=== PATIENT | male | born 1970 | race Native Hawaiian/Other Pacific Islander ===

== ENCOUNTER 2017-06-09 14:37 | Outpatient (CLI) | payer BC ==
[~2017-06-09 14:37] MED LIST: GLIM4TAB PO; JANUVIA100 MG PO; LISI20TA11 PO; METF500T PO; PEPCID20 MG PO
== END 2017-06-09 14:40 | disposition short-term general hospital (02) ==
LOC: AMB 14:37
DX: M54.89 Other dorsalgia (principal); W18.39XA Other fall on same level, initial encounter; Y92.481 Parking lot as the place of occurrence of the external cause
CPT/HCPCS: A0425; A0427

== ENCOUNTER 2017-06-09 14:50 | Emergency (ER) | payer BC ==
[~2017-06-09] VITALS: Ht 185.4 cm; Wt 142.9 kg
[2017-06-09 14:40] VITALS: TEMP 98.2
[2017-06-09 15:30] LABS: PLATELET COUNT 250 K/uL (142-355)
[2017-06-09 15:45] LABS: SODIUM 129 mmol/L (136-145)
[2017-06-09 18:41] VITALS: BP 148/88
== END 2017-06-09 18:42 | disposition home or self-care (01) ==
LOC: ED 14:50
PROVIDERS: Family Medicine
DX: M54.32 Sciatica, left side (principal); M54.31 Sciatica, right side; M47.896 Other spondylosis, lumbar region; M25.551 Pain in right hip; W18.39XA Other fall on same level, initial encounter; Y92.481 Parking lot as the place of occurrence of the external cause
CPT/HCPCS: 36415; 80053; 80307; 81000; 82550; 85027; 96374; 99284; G0479; J1885

== ENCOUNTER 2017-07-20 11:17 | Outpatient (CLI) | payer BC | END 2017-07-20 19:16 | disposition home or self-care (01) | LOC: RAD 11:17 | DX: Z01.818 Encounter for other preprocedural examination (principal) | CPT/HCPCS: 93005 ==

== ENCOUNTER 2017-10-23 11:33 | Emergency (ER) | payer BC ==
[~2017-10-23] VITALS: Ht 182.9 cm; Wt 158.8 kg
[2017-10-23 14:06] LABS: PLATELET COUNT 284 K/uL (142-355)
[2017-10-23 14:18] LABS: POTASSIUM 4.7 mmol/L (3.6-5.2); SODIUM 133 mmol/L (136-145)
[2017-10-23 14:39] LABS: PARTIAL THROMBOPLASTIN TIME 28.5 SECONDS (24.5-33.6)
[2017-10-23 15:00] VITALS: TEMP 98.4
[2017-10-23 16:10] VITALS: BP 151/83
== END 2017-10-23 17:53 | disposition short-term general hospital (02) ==
LOC: ED 11:33
PROVIDERS: Emergency Medicine
DX: R10.31 Right lower quadrant pain (principal); K92.2 Gastrointestinal hemorrhage, unspecified; Z93.3 Colostomy status
CPT/HCPCS: 36415; 80053; 81000; 82150; 82550; 83690; 84484; 85027; 85610; 85730; 96361; 96374; 96375; 96376; 99284; J1170; J2175; J2405

== ENCOUNTER 2018-07-31 15:36 | Observation (INO) | payer BC ==
[~2018-07-31] VITALS: Ht 182.9 cm; Wt 1523.9 kg
[2018-07-31 16:02] VITALS: BP 239/81; TEMP 97.8
[2018-07-31 16:44] LABS: PLATELET COUNT 290 K/uL (142-355)
[2018-07-31 19:08] VITALS: BP 127/63
[2018-08-01 00:37] VITALS: BP 136/67; TEMP 98.1; Ht 182.9 cm; Wt 1523.9 kg
[2018-08-01] MEDS ORDERED: GRALISE600 MG PO (01:34)
[2018-08-01] MEDS ORDERED: METO50TA27 PO (01:36)
[2018-08-01] MEDS ORDERED: FLUOXETINE40 MG PO (01:37)
[2018-08-01] MEDS ORDERED: HYDROCHLOROT12.5 M1 PO (01:43)
[2018-08-01 04:02] VITALS: BP 125/44; TEMP 98.1
[2018-08-01] MEDS ORDERED: LANTUS100 UNIT/M SC ×2 (04:16→04:18)
[2018-08-01] MEDS ORDERED: LISI20TA11 PO (04:27)
[2018-08-01 05:24] LABS: PLATELET COUNT 248 K/uL (142-355)
[2018-08-01 05:35] LABS: POTASSIUM 3.9 mmol/L (3.6-5.2)
[2018-08-01 08:08] VITALS: BP 91/64; TEMP 98.4
[2018-08-01] MEDS ORDERED: CIPRO500 MG PO (12:12)
[2018-08-01] MEDS ORDERED: METR250T19 PO (12:13)
[2018-08-01] MEDS ORDERED: ONDA4TAB3 PO (13:47)
== END 2018-08-01 13:38 | disposition home or self-care (01) ==
LOC: ED 15:36 → MED/SURG 18:45
PROVIDERS: ADMIT Family Medicine
DX: E86.0 Dehydration (principal); D72.828 Other elevated white blood cell count; R10.30 Lower abdominal pain, unspecified; R11.2 Nausea with vomiting, unspecified; E66.01 Morbid (severe) obesity due to excess calories; I10 Essential (primary) hypertension; E10.9 Type 1 diabetes mellitus without complications; Z68.42 Body mass index [BMI] 45.0-49.9, adult
CPT/HCPCS: 36415; 80048; 80053; 81000; 82150; 82948; 83605; 83690; 85027; 87040; 96365; 96366; 96367; 96372; 96374; 96375; 99220; 99284; G0378; J0744; J1650; J1815; J2270; J2405; J3490

== ENCOUNTER 2018-08-03 09:37 | Day surgery (SDC) | payer BC ==
[~2018-08-03 09:37] MED LIST changes: +CIPRO500 MG PO; +FLUOXETINE40 MG PO; +GRALISE600 MG PO; +HYDROCHLOROT12.5 M1 PO; +LANTUS100 UNIT/M SC; +METO50TA27 PO; +METR250T19 PO; +ONDA4TAB3 PO
== END 2018-08-03 13:10 | disposition home or self-care (01) ==
LOC: OR 09:37
PROC: 0D7 Gastrointestinal System, Dilation (ICD-10-PCS; principal; 2018-08-03)
PROC: 3C1ZX8Z Irrigation of Indwelling Device using Irrigating Substance, External Approach (ICD-10-PCS; 2018-08-03)
PROC: 0WQFXZ2 Repair Abdominal Wall, Stoma, External Approach (ICD-10-PCS; 2018-08-03)
DX: K94.03 Colostomy malfunction (principal); K56.41 Fecal impaction
CPT/HCPCS: J2704; J3490

== ENCOUNTER 2018-08-06 13:48 | Inpatient (IN) | payer BC ==
[~2018-08-06] VITALS: Ht 182.9 cm; Wt 160.8 kg
[2018-08-06 16:14] LABS: PLATELET COUNT 286 K/uL (142-355)
[2018-08-06 16:33] LABS: PARTIAL THROMBOPLASTIN TIME 27.4 SECONDS (24.5-33.6)
[2018-08-06 17:27] VITALS: BP 154/83; TEMP 98.3; Ht 182.9 cm; Wt 160.8 kg
[2018-08-06 20:00] VITALS: BP 141/87; TEMP 97.8
[2018-08-06 23:53] VITALS: BP 137/68; TEMP 97.8
[2018-08-07 04:27] VITALS: BP 124/63; TEMP 97.5
[2018-08-07 08:06] VITALS: BP 139/69; TEMP 98
[2018-08-07 12:07] VITALS: BP 179/90; TEMP 98.2
[2018-08-07 16:14] VITALS: BP 129/68; TEMP 98.1
[2018-08-07 19:56] VITALS: BP 143/69; TEMP 98.9
[2018-08-08] VITALS: BP 119/57; TEMP 98.5
[2018-08-08 04:02] VITALS: BP 112/69; TEMP 97.9
[2018-08-08] MEDS ORDERED: SENNA8.6 MG PO (07:17)
[2018-08-08 08:04] VITALS: BP 154/72; TEMP 97.6
== END 2018-08-08 14:30 | disposition home or self-care (01) | DRG 394 ==
LOC: MED/SURG 13:48
DX: K94.03 Colostomy malfunction (principal); E23.2 Diabetes insipidus; L03.311 Cellulitis of abdominal wall; Y83.3 Surgical operation with formation of external stoma as the cause of abnormal reaction of the patient, or of later complication, without mention of misadventure at the time of the procedure; Y73.8 Miscellaneous gastroenterology and urology devices associated with adverse incidents, not elsewhere classified; Y92.89 Other specified places as the place of occurrence of the external cause; K52.89 Other specified noninfective gastroenteritis and colitis; I10 Essential (primary) hypertension; M54.30 Sciatica, unspecified side; K59.09 Other constipation
CPT/HCPCS: 80053; 85027; 85610; 85730; 93005; J0744; J1815; J3490; Q9963

== ENCOUNTER 2021-12-03 14:48 | Emergency (ER) | payer OTHER ==
[~2021-12-03] VITALS: Ht 182.9 cm; Wt 158.8 kg
[2021-12-03 14:48] VITALS: TEMP 98
[~2021-12-03 14:48] MED LIST changes: +SENNA8.6 MG PO
[2021-12-03 15:34] LABS: PLATELET COUNT 255 K/uL (142-355)
[2021-12-03 15:41] LABS: POTASSIUM 4.2 mmol/L (3.6-5.2)
[2021-12-03 15:59] LABS: PARTIAL THROMBOPLASTIN TIME 32.3 SECONDS (24.5-33.6)
[2021-12-03 16:58] VITALS: BP 119/74
== END 2021-12-03 16:59 | disposition home or self-care (01) ==
LOC: ED 14:54
PROVIDERS: Emergency Medicine
DX: R07.89 Other chest pain (principal); I10 Essential (primary) hypertension; E11.65 Type 2 diabetes mellitus with hyperglycemia; Z79.4 Long term (current) use of insulin; R06.02 Shortness of breath; F17.220 Nicotine dependence, chewing tobacco, uncomplicated
CPT/HCPCS: 36415; 80053; 82948; 83880; 84484; 85027; 85379; 85610; 85730; 93005; 99284